=== PATIENT | male | born 1995 | race Caucasian/White ===

== ENCOUNTER 2017-05-31 13:33 | Emergency (ER) | payer MEDICAID, SELFPAY ==
[2017-05-31 13:36] VITALS: BP 127/87; PULSE 87; RESP 17; TEMP 37.4; O2SAT 99; BMI 22.0
--- NOTE | 2017-05-31 14:01 | ED.DCSUM_ITS ---
- ER Visit Summary Date of Service: 05/31/17 Chief Complaint: [] Nausea/vomiting/diarrhea History of Present Illness: The patient is a 21 M [] presenting with nausea/ vomiting/diarrhea beginning 3-4 days ago. He is in the room with his male partner was also providing history. He denies fevers. Reports he recently saw his PCP approximately 1 week ago and was started on antibiotic for an upper respiratory infection. He is unsure of the name of the antibiotic. He also reports mild discomfort in his back and lower extremities however he reports his PCP has provided him with a prescription for outpatient x-rays of his back and lower extremities. Patient denies chest pain or shortness of breath. Denies cough. Denies abdominal pain. No other complaints at this time. Physical Examination: [] Afebrile, vital signs stable. 21-year-old male in no acute distress. Cardiovascular exam is regular rate and rhythm. Lungs are clear to auscultation. Abdomen is soft and nontender. There is no lower extremity edema. Test Results: [] CBC: Normal. CMP: Normal. Emergency Department Course and Treatment: [] Patient provided intravenous fluids, Toradol, Phenergan. On serial examination patient felt significant improvement was able to pass a p.o. challenge. He was also able to urinate. Patient was given a short-term prescription for Phenergan and encouraged to hydrate at home and rest. Treatment Plan: [] Follow-up with PCP. Disposition: [] Discharge, stable. Impression: [] Vomiting Diarrhea This note was generated with [employer] dictation software. It may contain incorrect words, spelling, and punctuation that were not noted in review of the chart prior to signing ED Disposition - Plan for ED Patient: Chief Complaint: Nausea/Vomiting/Diarrhea Referrals: [facility] Doctor,Out of [NON-STAFF] -
[2017-05-31 14:23] LABS: Absolute Lymphocyte Count 2.02 X10^3/ul (0.83-4.51); Absolute Neutrophil Count 4.7 X10^3/uL (2.0-7.7); Basophil# 0.02 X10^3/uL; Basophil% 0.3 % (0-1); Eosinophil# 0.11 X10^3/uL; Eosinophils% 1.5 % (0-5); Hematocrit 48.9 % (40-54); Hemoglobin 17.5 g/dl (13.0-16.5); Lymphocyte # 2.02 X10^3/ul (4.0); Lymphocyte % 27.3 % (19-41); Mean Corp Hgb Conc 35.8 g/gl (32-36); Mean Corpuscular Hgb 33.8 pg (27.0-32.0); Mean Corpuscular Volume 94.6 fL (80-94); Mean Platelet Vol. 10.5 fl (6.2-12.0); Monocyte# 0.56 X10^3/uL; Monocyte% 7.6 % (0-10); Neutrophil # 4.66 X10^3/uL (2.7-7.7); Neutrophil % 62.9 % (47-70); POSITIVE COUNT NO; POSITIVE DIFFERENTIAL NO; POSITIVE MORPHOLOGY NO; Platelet Count 235 K/mm3 (150-450); RBC Distribution Width CV 12.2 % (11.6-14.6); RBC Distribution Width SD 41.9 fl (35.1-43.9); Red Blood Count 5.17 M/mm3 (4.6-6.2); White Blood Count 7.4 K/mm3 (4.4-11.0)
[2017-05-31] MEDS: 0.9% Normal Saline 1,000 ML 1000 ML IV (14:28)
[2017-05-31] MEDS: Ketorolac 15 MG/ML Vial IV (14:29)
[2017-05-31 14:40] LABS: ALB/GLOB Ratio 1.3 RATIO (0.9-2.4); AST(SGOT) 14 U/L (15-37); Alanine Aminotransfer ALT/SGPT 16 U/L (16-61); Albumin, Serum 4.7 g/dL (3.2-5.0); Alkaline Phosphatase 82 U/L (45-117); Anion Gap 6 (5-15); BUN 13 mg/dL (7-18); BUN/Creat Ratio 12.6 RATIO (10-20); Calcium,Total 9.4 mg/dL (8.5-10.1); Chloride 108 mmol/L (98-107); Creatinine, Serum 1.03 mg/dL (0.70-1.30); EST Glomerular Filtration Rate 97 mL/min (>60); Est Glom Filt Rate - Afr Amer 118 mL/min (>60); Estimated Creatinine Clearance 109.72 ml/min; Globulin 3.7 g/dL (2.2-4.2); Glucose 106 mg/dL (74-106); Potassium 3.5 mmol/L (3.5-5.1); Protein, Total 8.4 g/dL (6.4-8.2); Sodium Level 141 mmol/L (136-145)
--- NOTE | 2017-05-31 15:12 | ED.DEP ---
ED Disposition - Plan for ED Patient: Disposition: Home or Assisted Living Chief Complaint: Nausea/Vomiting/Diarrhea Instructions: ED Vomiting Diarrhea Nonspecific Ad Prescriptions: ProMETHAzine [Phenergan] 25 mg PO Q6H PRN PRN #20 tab PRN Reason: Nausea Referrals: [facility] Doctor,Out of [NON-STAFF] -
[2017-05-31 15:33] VITALS: PULSE 81; RESP 16; O2SAT 98
== END 2017-05-31 15:34 | disposition home or self-care (01) ==
PROVIDERS: Emergency Provider Emergency Medicine
DX: R11.2 Nausea with vomiting, unspecified (principal); R19.7 Diarrhea, unspecified; M54.9 Dorsalgia, unspecified; M79.604 Pain in right leg; M79.605 Pain in left leg; Z72.0 Tobacco use
CPT/HCPCS: 80053; 85025; 96361; 96374; 96375; 99283; J7030; A4216

== ENCOUNTER → 2017-06-04 14:29 | Outpatient (CLI) | payer MEDICAID, SELFPAY ==
--- NOTE | 2017-06-04 14:32 | RAD_ITS ---
STUDY: X-RAY - LUMBAR SPINE REASON FOR EXAM: Male, 21 years old. LBP WITH RADIATION INTO BOTH LEGS WITH N/T X2 MONTHS. NKI. TECHNIQUE: 5 view(s) of the lumbar spine were obtained. COMPARISON: None FINDINGS: There is straightening of the normal lumbar lordosis. There is no substantial scoliosis. There is a normal alignment of the vertebrae. Normal vertebral bodies and endplates. Normal disc space heights. The soft tissue structures are unremarkable. RAD/L/S Spine Min 4 Views IMPRESSION: There is mild straightening of the normal lumbar lordosis. This can suggest back strain. Electronically Signed: Breezy Colvin MD at 17:05 EDT , Service support ,
== END ==
PROVIDERS: Family Provider Family Medicine; PCP Family Medicine; Visit Provider Family Medicine
DX: R20.2 Paresthesia of skin (principal)
CPT/HCPCS: 72110

== ENCOUNTER → 2019-02-18 12:29 | Outpatient (CLI) | payer MEDICAID, SELFPAY ==
[2019-02-16 14:23] VITALS: BMI 20.9
[2019-02-18 14:34] LABS: HIV - WCH Non-Reactive (Nonreactive)
[2019-02-18 14:52] LABS: Chlamydia Trachomatis by PCR Negative (Negative); Neisserai gonorrhoeae by PCR Negative (Negative); Probe Check PASS; Sample Adequacy Control PASS; Specimen Processing Control PASS
[2019-02-23 05:10] LABS: Rapid Plasmin Reagin (RPR) NONREACTIVE (NONREACTIVE)
== END ==
PROVIDERS: Family Provider Internal Medicine; PCP Internal Medicine; Referring Provider Internal Medicine; Visit Provider Internal Medicine
DX: Z11.3 Encounter for screening for infections with a predominantly sexual mode of transmission (principal)
CPT/HCPCS: 36415; 86592; 86703; 87491; 87591

== ENCOUNTER 2020-04-03 07:09 | Emergency (ER) | payer MEDICAID, SELFPAY ==
[2019-02-16 14:23] VITALS: BMI 20.9
[2020-04-03 07:11] VITALS: BP 138/87; PULSE 116; RESP 14; TEMP 36.3; O2SAT 98; BMI 20.9
--- NOTE | 2020-04-03 07:14 | ED.VIS.GEN ---
History of Present Illness Chief Complaint: Headache Informant: Patient Narrative: 24-year-old male with history of migraine headache presents with symptoms of migraine. He states that his current headache has been present for 2 days. Patient states that he typically takes Excedrin Migraine for this with some success however his headache is not gone away. Patient states that he has had imaging of his brain previously. He is seen his primary care physician for migraine evaluation in the past and was told to take Excedrin Migraine. He has no other abortive therapy at home. Patient denies fever, chills, body aches, cough or cold symptoms. - Past Medical History (1) Migraines Status: Chronic Past Medical History - Allergies and Home Meds Allergies/Adverse Reactions: Allergies No Known Allergies Allergy (Verified 04/03/20 07:10) Primary Care Physician: Sumit Bales MD [Primary Care Provider] - Prior records reviewed: Yes Past Medical History: - - Reviewed in problem list Lives: Alone Smoking Status: Current every day smoker Alcohol: None Drugs: None Review of Systems General: Denies: Chills, Fever, Sweats Eyes: Reports: - - Photophobia. Denies: Visual changes - bilaterally, Diplopia ENT: Denies: Rhinorrhea, Sore throat Cardiovascular: Denies: Chest pain, Palpitations Respiratory: Denies: Dyspnea, Cough, Dyspnea on exertion Gastrointestinal: Reports: Nausea. Denies: Abdominal pain, Vomiting, Diarrhea, Melena, Hematochezia Genitourinary: Denies: Dysuria, Hematuria, Frequency Musculoskeletal: Denies: Back pain, Extremity Pain Skin: Denies: Rash, Wounds Neurological: Reports: Headache. Denies: Parasthesia, Numbness Psych: Denies: Depression, Anxiety Physical Exam Vital Signs/Narrative: Vital Signs Temp Pulse Resp BP Pulse Ox 04/03/20 07:11 97.3 F L 116 H 14 138/87 H 98 Inital Vital Signs reviewed: Yes General: Well nourished, No Acute Distress Head: Normocephalic, Atraumatic Eyes: Perrl, EOMI ENT: Moist mucous membranes, No rhinorrhea Cardiovascular: Regular rate, Regular rhythm Respiratory: No distress, CTA bilaterally Skin: Normal color, No rash. Negative for: Cyanosis, Diaphoresis Neurological: Alert, Oriented x3, Cranial nerves II-XII grossly intact Psychological: Normal affect, Normal Mood Diagnostic/Tx/Re-eval - Medical Decision Making 24-year-old male seen and evaluated on arrival for migraine headache. He states he has a history of this and this feels similar to previous migraine headaches. He states it is not getting better with tender migraine. Patient was given Reglan, Benadryl, Toradol as well as 500 cc bolus of normal saline. After receiving medication patient states he feels fine. He is ready to be discharged home. Patient is given return precautions. Counseled to follow-up with his primary care physician as needed. Patient stable for discharge. Impression: 1. Headache ED Disposition - Plan for ED Patient: Disposition: Home or Assisted Living Instructions: ED, Migraine (Classical) Referrals: Sumit Bales MD [Primary Care Provider] -
[2020-04-03] MEDS: Metoclopramide 10 MG/2 ML Vial IV (07:36)
[2020-04-03] MEDS: DiphenhydrAMINE 50 MG/ML Syringe 25 MG IV (07:36)
[2020-04-03] MEDS: Ketorolac 15 MG/ML Vial IV (07:36)
[2020-04-03 08:16] VITALS: PULSE 80; RESP 16; O2SAT 97
== END 2020-04-03 08:16 | disposition home or self-care (01) ==
LOC: ED 08:06
PROVIDERS: Emergency Provider Student in an Organized Health Care Education/Training Program
DX: G43.909 Migraine, unspecified, not intractable, without status migrainosus (principal); F17.200 Nicotine dependence, unspecified, uncomplicated
CPT/HCPCS: 96361; 96374; 96375; 99283; J7030